=== PATIENT | female | born 2005 | race African-American/Black ===

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

== ENCOUNTER 2024-07-27 14:16 | Emergency (ER) | payer OTHER, SELFPAY ==
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
[2024-07-27 14:30] VITALS: BP 134/80; PULSE 76; RESP 16; TEMP 37.1; O2SAT 100; BMI 23.8
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
[2024-07-27 17:57] VITALS: BP 134/80; PULSE 76; RESP 16; TEMP 37.1; O2SAT 100
== END 2024-07-27 18:18 | disposition home or self-care (01) ==
PROVIDERS: Emergency Provider Emergency Medicine
DX: Z04.1 Encounter for examination and observation following transport accident (principal); M79.18 Myalgia, other site; Z79.899 Other long term (current) drug therapy
CPT/HCPCS: 70450; 72072; 72100; 72125; 99282; 99284

== ENCOUNTER → 2024-07-27 14:35 | Outpatient (BNV) | payer OTHER, SELFPAY | PROVIDERS: Visit Provider Radiology Diagnostic Radiology | DX: M54.2 Cervicalgia (principal); M54.9 Dorsalgia, unspecified | CPT/HCPCS: 70450; 72072; 72100; 72125 ==

== ENCOUNTER 2024-11-23 11:12 | Emergency (ER) | payer SELFPAY ==
--- NOTE | 2024-11-23 11:17 | ED.GENADULT ---
HPI - General Adult General Chief complaint: Wound/Laceration Stated complaint: skin condition, bumps in pubic area Time Seen by Provider: 11/23/24 13:35 Source: patient Mode of arrival: ambulatory Limitations: no limitations History of Present Illness ED Provider: JERICA MONTIEL PA-C HPI narrative: 19-year-old female with past medical history significant for hidradentitis suppurativa presents to the ED today for evaluation of bump to groin region x3 days. Reports history of bumps in this area. Followed with her wire sawyer who has treated her with anitbiotics in the past with good effect. She was referred to a director data processing however has not been able to get an appointment. She recently aged out of her wire sawyer's office and does not have anyone to follow up with. She reports a bump to her right groin region along her bikini line that was the size of a golf ball a few days ago. It has been decreasing in size since. She has been taking Motrin and applying warm compresses with good effect. Reports continued pain. No radiation. Denies any drainage or discharge from the area. She is also requesting STD testing. She has been with the same partner for a while and uses protection. Denies any vaginal lesions, discharge, dysuria, fever/chills. Related Data Previous Rx's ?Medication ?Instructions ?Recorded magnesium citrate 150 ml PO DAILY PRN constipation 04/07/21 #296 mL amoxicillin 875 mg-potassium 1 tab PO Q12H 10 days #20 tabs 10/12/21 clavulanate 125 mg tablet acetaminophen 300 mg-codeine 30 mg 1 tab PO Q8H PRN pain #14 tabs 10/30/21 tablet ibuprofen 800 mg tablet 800 mg PO Q8H PRN pain #14 tabs 10/30/21 cyclobenzaprine 10 mg tablet 10 mg PO TID PRN muscle spasm #14 01/24/22 tabs ibuprofen 600 mg tablet 600 mg PO Q6H PRN pain #30 tabs 01/24/22 lidocaine 4 % topical patch 1 patch topical DAILY PRN pain #10 01/24/22 ea lorazepam 1 mg tablet 1 mg PO BID PRN anxiety #10 tabs 02/10/22 acetaminophen 500 mg tablet 500 mg PO Q6H PRN fever or pain 07/27/24 (Tylenol Extra Strength) #14 tabs lidocaine 5 % topical patch 1 patch topical DAILY PRN pain #30 07/27/24 (Lidoderm) ea naproxen 500 mg tablet 500 mg PO BID PRN pain 10 days #20 07/27/24 tabs clindamycin HCl 150 mg capsule 450 mg (3 x 150 mg) PO TID 7 days 11/23/24 #63 caps fluconazole 100 mg tablet 100 mg PO Q72H #2 tabs 11/23/24 (Diflucan) Allergies Allergy/AdvReac Type Severity Reaction Status Date / Time raspberry [RASPBERRY] Allergy Unknown LIP Verified 11/23/24 11:19 SWELLING Review of Systems Review of Systems: Yes all other systems are reviewed and are negative [facility] Past Medical History Attestation statement: The following information was validated with the patient. Source: old records reviewed and nursing notes reviewed Medical History No known health problems Social History Social History Unable to assess alcohol history related to: Unknown Alcohol intake: never Patient Tobacco Use Status: Never used Tobacco Use of substances other than those prescribed or required for medical reasons: Unknown Advance Directives: No Advance Directives Information Provided: Yes Do you have a plan to hurt others: No Plan Patient : No Physical Exam ED Vital Signs: Vital Signs - 24 hr 11/23/24 11:18 Temperature 98 F Pulse Rate 89 Respiratory Rate 18 Blood Pressure 128/79 Pulse Oximetry 98 Oxygen Delivery Method Room Air BMI result Body Mass Index 25.8 vital signs stable Const General: cooperative, healthy appearing, comfortable and no acute distress Orientation/consciousness: patient oriented x3 Limitations: no limitations [facility] Head: Yes normal to inspection, Yes No palpable skull fracture present, Yes normocephalic and Yes atraumatic Eyes General: appearance normal, both eyes and all related structures Pupils: Equal, round and reactive pupils present Neck Neck: Yes normal visual inspection Resp Effort & Inspection: normal respiratory effort and able to speak in complete sentences Auscultation: clear to auscultation bilaterally Cardio Rate: regular rate Rhythm: regular rhythm GI Inspection: Yes normal to inspection Palpation (GI): Soft to palpation, nontender and no guarding Auscultation: normal bowel sounds Female genitals images: 1. small area of induration, warm, erythematous. ttp. no palpable fluctuance. no pointing. no streaking. no ulcerations or open skin lesions. no drainage. Skin General skin exam: no rashes or lesions noted Neuro General: patient oriented x3 Cranial nerves: Yes Equal, round and reactive pupils present Course Course Course Narrative: RME, this is a rapid medical exam performed by Joselito Fragoso please refer to primary provider for complete H&P- 19-year-old female presents for evaluation of a boil in my pelvic area. she reports that it was initially the size of a golf ball and may be slightly smaller now. She states it has been there for 3 days and she has a significant amount of pain. She reports a history of hidradenitis. Plan for direct observation when a room is available. Reevaluation(s) Reevaluation #1: Area of induration noted to right groin fold - no fluctuance or pointing. no indication for I&D. will treat with PO clindamycin. advised warm compresses. derm referral provided. advised tylenol/motrin at home. motrin given in ED. patient opted to self swab for bv, trich, ct/ng. swabs testing. I have extremely low suspicion for STD including herpes, syphillis. no LAD. no open lesions/ ulcerations. informed patient that she will be contacted with any positive results. Patient has remained stable throughout ED visit today. Discussed worrisome signs and symptoms and when to return to the ED. All questions answered at this time. Patient is agreeable with disposition and stable for discharge. Medications Administered Discontinued Medications Generic Name Dose Route Start Last Admin Trade Name Ronnyq PRN Reason Stop Dose Admin Ibuprofen 600 mg 11/23/24 15:30 11/23/24 15:39 Ibuprofen 600 Mg Tablet PO 11/23/24 15:31 600 mg ONCE ONE Administration Medical Decision Making Medical Decision Making [facility] Narrative: 19-year-old female with past medical history significant for hidradentitis suppurativa presents to the ED today for evaluation of bump to groin region x3 days. vital signs stable. she is nontoxic appearing and in NAD. please see exam portion of note for findings. Differential diagnosis includes cellulitis, abscess, folliculitis. Exam is not consistent with bartholins cyst, bartholins abscess. Unlikely syphilis, herpes. Plan for vaginal swabs, motrin, and disposition. Differential Diagnosis Differential Diagnoses: The differential diagnosis associated with the presentation includes as above. Admission/Observation not indicated. Prescription Management I considered prescription management with: Antibiotic (clindamycin) Chronic Conditions Patient?s care impacted by: Other (Hidradenitis suppurativa) Social Determinants Patient?s care significantly limited by Social Determinants of Health including: Other Social Determinant of Health Critical Care Time Critical Care Time Critical Care Time: No Discharge Plan Discharge Clinical Impression: Folliculitis Patient Disposition: Home, Self-Care Instructions: Folliculitis (ED) Additional Instructions: You were evaluated in the ED today for a lump to your groin. Please keep the surrounding area clean and dry. You will be given a prescription for antibiotics (clindamycin). Please take the antibiotics as directed for the full course of the medication. If the abscess progresses you may have to have the abscess incised and drained. I recommend you take 600mg ibuprofen every 6 hours or Tylenol 650mg every 6 hours as needed for pain. If needed, you can alternate these medications so that you take one medication every 3 hours. For example, at noon take ibuprofen, then at 3pm take Tylenol, then at 6pm take ibuprofen. Continue applying warm compresees to the area. You were also tested for bacterial vaginosis, Trichomonas, gonorrhea, chlamydia. These tests have been sent to the lab. You will be contacted with any positive results in 3-4 days and will be treated appropriately at that time. Further testing for herpes, syphilis, and HIV can be obtained at your local clinic or by your PCP.? [facility] can assist with these tests. [facility]: [address] [place] [id number] [phone] Please schedule an appointment with your primary care provider as soon as possible for follow up. You have also been provided with a referral a director data processing. You may call them to establish care. They will not call you. Return to the Emergency Department if you experience fevers greater than 100.4F, increase in area of redness or swelling, increasing amount of discharge from the area, increased tenderness around the area, or any other concerning symptoms. Prescriptions: New clindamycin HCl 150 mg capsule 450 mg PO TID 7 Days Qty: 63 0RF fluconazole [Diflucan] 100 mg tablet 100 mg PO Q72H Qty: 2 0RF Rx Instructions: take first dose (1 tab) today and second dose in 3 days No Action magnesium citrate Solution 150 ml PO DAILY PRN (Reason: constipation) Qty: 296 0RF amoxicillin-pot clavulanate 875-125 mg tablet 1 tab PO Q12H 10 Days Qty: 20 0RF ibuprofen 800 mg tablet 800 mg PO Q8H PRN (Reason: pain) Qty: 14 0RF acetaminophen-codeine 300-30 mg tablet 1 tab PO Q8H PRN (Reason: pain) Qty: 14 0RF cyclobenzaprine 10 mg tablet 10 mg PO TID PRN (Reason: muscle spasm) Qty: 14 0RF lidocaine 4 % adhesive patch,medicated 1 patch topical DAILY PRN (Reason: pain) Qty: 10 0RF Rx Instructions: may leave on for up to 12 hrs ibuprofen 600 mg tablet 600 mg PO Q6H PRN (Reason: pain) Qty: 30 0RF lorazepam 1 mg tablet 1 mg PO BID PRN (Reason: anxiety) Qty: 10 0RF acetaminophen [Tylenol Extra Strength] 500 mg tablet 500 mg PO Q6H PRN (Reason: fever or pain) Qty: 14 0RF lidocaine [Lidoderm] 5 % adhesive patch,medicated 1 patch topical DAILY MDD remove after 12 hours PRN (Reason: pain) Qty: 30 0RF Rx Instructions: leave on most painful area for up to 12 hrs naproxen 500 mg tablet 500 mg PO BID PRN (Reason: pain) 10 Days Qty: 20 0RF Referrals: [facility] [Provider Group] Carmen Elias PA [Physician Health And Safety Technician] - Stand Alone Forms: Work/School Release Print Language: Mohawk
[2024-11-23 11:18] VITALS: BP 128/79; PULSE 89; RESP 18; TEMP 36.6; O2SAT 98; BMI 25.8
[2024-11-23] MEDS: Ibuprofen 600 MG TABLET PO (15:39)
[2024-11-23 16:26] VITALS: BP 128/79; PULSE 89; RESP 18; TEMP 36.6; O2SAT 98
[2024-11-23 18:25] LABS: Bacterial Vaginosis PCR NEGATIVE (Negative); Candida Group PCR DETECTED (Not Detect); Candida glab krusei PCR NOT DETECTED (Not Detect); Trichomonas vaginalis PCR NOT DETECTED (Not Detect)
[2024-11-23 18:58] LABS: CT PCR NOT DETECTED (Not Detect.); NG PCR NOT DETECTED (Not Detect.)
== END 2024-11-23 16:26 | disposition home or self-care (01) ==
PROVIDERS: Physician Assistant Medical; Emergency Provider Emergency Medicine
DX: L73.8 Other specified follicular disorders (principal); R10.2 Pelvic and perineal pain; L73.2 Hidradenitis suppurativa
CPT/HCPCS: 81515; 87491; 87591; 99283; 99284